=== PATIENT | male | born 1995 | race Caucasian/White ===

== ENCOUNTER 2020-04-27 10:10 | Emergency (ER) | payer SELFPAY ==
--- NOTE | 2020-04-27 11:30 | RAD ---
EXAM: 4 views of the right knee HISTORY: Knee pain after fall COMPARISON: None FINDINGS: No knee effusion is seen. There is no evidence of acute fracture or dislocation. No signifi cant degenerative changes are seen. No soft tissue swelling is present. IMPRESSION: No evidence of acute osseous abnormality.
== END 2020-04-27 12:06 | disposition home or self-care (01) ==
LOC: ERS 10:10
DX: M23.91 Unspecified internal derangement of right knee (principal)